=== PATIENT | female | born 1985 ===

== ENCOUNTER 2018-07-22 17:09 | Inpatient (IN) ==
[2018-07-22] MEDS: LACTATED RINGERS 1,000 ML IV SCH (17:53)
[2018-07-22] MEDS ORDERED: ONDANSETRON 4 MG/2 ML VIAL IV PRN (18:00)
[2018-07-22] MEDS ORDERED: OXYTOCIN/LR 20 UNIT/1,000 ML BAG IV ONE (18:06)
[2018-07-22] MEDS ORDERED: CITRIC ACID/SODIUM CITRATE 30 ML UDCUP PO ONE (18:14)
[2018-07-22] MEDS ORDERED: FAMOTIDINE 20 MG/2 ML VIAL IV ONE (18:14)
[2018-07-22] MEDS ORDERED: INFLUENZA VIRUS VACCINE 0.5 ML SYRINGE IM ONE (18:36)
[2018-07-22 18:54] LABS: Basophils % 0.2 % (0.0-0.8); Eosinophils # 0.1 10*3/uL (0.0-0.87); Eosinophils % 1.4 % (0.00-10.9); Hematocrit 29.5 VOL% (35.7-47.0); Hemoglobin 9.6 GM/DL (12.0-16.0); Immature Granulocytes % 0.8 %; Immature Granulocytes Absolute 0.05 #; Lymphocytes # 1.4 10*3/uL (1.4-4.0); Lymphocytes % 20.7 % (21.3-54.2); Mean Corpuscular HGB Conc 32.5 GM/DL (32-36); Mean Corpuscular Hemoglobin 30 PG (27-34); Mean Corpuscular Volume 93.1 FL (87-102); Mean Platelet Volume 10.9 FL (9.6-12.0); Monocytes # 0.5 10*3/uL (0.11-0.8); NRBC # 0.02 10*3/uL; Neutrophils # 4.6 10*3/uL (1.4-7.4); Neutrophils % 69.9 % (38.7-73.9); Platelet Count 159 T/CUMM (130-400); Red Blood Count 3.17 MC/CUMM (3.8-5.5); Red Cell Distribution Width 16.3 % (9.3-17.3); White Blood Count 6.6 T/CUMM (4-12)
[2018-07-22 19:10] LABS: Alanine Aminotransferase 26 U/L (13-56); Alkaline Phosphatase 180 U/L (45-117); Aspartate Amino Transferase 34 U/L (0-37); Bilirubin,Total < 0.39 MG/DL (0.2-1.0); Blood Urea Nitrogen 11 MG/DL (7-18); Calcium 7.4 MG/DL (8.5-10.1); Glucose 92 MG/DL (74-106); Osmolality,Calculated 284.8 MOS/KG (273-304); Potassium 3.7 MMOL/L (3.5-5.1); Sodium 144 MMOL/L (136-145); Total Protein 5.8 G/DL (6.4-8.3)
[2018-07-23] MEDS ORDERED: FAMOTIDINE 20 MG/2 ML VIAL IV ONE (08:00)
[2018-07-23] MEDS ORDERED: CITRIC ACID/SODIUM CITRATE 30 ML UDCUP PO ONE (08:00)
[2018-07-23] MEDS ORDERED: OXYTOCIN 10 UNIT/ML VIAL IM ONE (08:00)
[2018-07-23] MEDS ORDERED: ceFAZolin 2,000 MG in PREMIX 1 EACH IV ONE (08:00)
[2018-07-23] MEDS ORDERED: OXYTOCIN/LR 20 UNIT/1,000 ML BAG IV ONE ×2 (08:00→14:14)
[2018-07-23] MEDS ORDERED: OXYTOCIN/LR 30 UNIT/1,000 ML BAG IV ONE (08:27)
[2018-07-23] MEDS: LACTATED RINGERS 1,000 ML IV SCH (08:59)
[2018-07-23 09:34] LABS: Apearance,Urine CLEAR (Clear); Bacteria,Urine Occasional /HPF (Few); Bilirubin,Urine Negative (Negative); Blood, Urine Small mg/dL (Negative); Glucose,Urine (UA) Negative (Negative); Ketones,Urine Negative (Negative); Mucus,Urine Occasional /LPF (Occasional); Nitrite,Urine Negative (Negative); Protein,Urine Negative; RBC,Urine 2 /HPF (0-4); Squamous Epithelial Cell,Urine Occasional /HPF (0-10); Urine Color Yellow (Yellow); Urine Specific Gravity 1.014 (1.001-1.035); WBC,Urine 1 /HPF (0-6)
[2018-07-23] MEDS ORDERED: SODIUM CHLORIDE 0.9% 1,000 ML IV PRN (10:28)
[2018-07-23] MEDS ORDERED: miSOPROStol 200 MCG TABLET ONE (10:29)
[2018-07-23] MEDS ORDERED: METHYLERGONOVINE 0.2 MG/1 ML AMP ONE (10:29)
[2018-07-23] MEDS ORDERED: PHENYLEPHRINE 1 MG/10 ML SYRINGE IV ONE (11:03)
[2018-07-23] MEDS ORDERED: MORPHINE 10 MG/10 ML VIAL ONE (11:04)
[2018-07-23] MEDS ORDERED: ePHEDrine 50 MG/ML AMP ONE (11:04)
[2018-07-23] MEDS ORDERED: KETOROLAC 30 MG/1 ML VIAL ONE (11:04)
[2018-07-23] MEDS ORDERED: BUPIVACAINE SPINAL 0.75% 2 ML AMP SPINAL ONE (11:05)
[2018-07-23 11:12] LABS: Cord Venous Blood HCO3 22.5 MMOL/L; Cord Venous Blood PCO2 43.8 MMHG; Cord Venous Blood PO2 45.6
[2018-07-23] MEDS ORDERED: guaiFENesin/CODEINE 5 ML LIQUID PO PRN (13:27)
[2018-07-23] MEDS ORDERED: MAGNESIUM HYDROXIDE SUSP 30 ML UDCUP PO PRN (14:14)
[2018-07-23] MEDS ORDERED: RHO(D) IMMUNE GLOBULIN 300 MCG SYRINGE IM ONE (14:14)
[2018-07-23] MEDS ORDERED: ACETAMINOPHEN 325 MG TABLET PO PRN (14:14)
[2018-07-23] MEDS ORDERED: ONDANSETRON 4 MG/2 ML VIAL IV PRN (14:14)
[2018-07-23] MEDS ORDERED: SIMETHICONE CHEW 80 MG TABLET PO PRN (14:14)
[2018-07-23] MEDS ORDERED: ceFAZolin 1,000 MG in SYRINGE 1 EACH IV SCH ×2 (14:30→17:00)
[2018-07-23] MEDS ORDERED: methylPREDNISolone SOD SUC 40 MG/1 ML VIAL IV SCH (14:30)
[2018-07-23] MEDS ORDERED: LACTATED RINGERS 1,000 ML IV SCH (14:30)
[2018-07-23] MEDS: methylPREDNISolone SOD SUC 125 MG/2 ML VIAL IV SCH ×2 (14:45→22:18)
[2018-07-23] MEDS: ceFAZolin 1,000 MG in SYRINGE 1 EACH IV SCH (17:37)
[2018-07-23 18:52] LABS: Basophils % 0.2 % (0.0-0.8); Hemoglobin 10.8 GM/DL (12.0-16.0); Immature Granulocytes % 0.7 %; Immature Granulocytes Absolute 0.09 #; Lymphocytes # 0.7 10*3/uL (1.4-4.0); Lymphocytes % 5.4 % (21.3-54.2); Mean Corpuscular HGB Conc 31.8 GM/DL (32-36); Mean Corpuscular Hemoglobin 29 PG (27-34); Mean Corpuscular Volume 90.4 FL (87-102); Mean Platelet Volume 11.1 FL (9.6-12.0); Monocytes # 0.3 10*3/uL (0.11-0.8); Monocytes % 2.4 % (1.7-12.7); Neutrophils # 11.4 10*3/uL (1.4-7.4); Neutrophils % 91.3 % (38.7-73.9); Platelet Count 185 T/CUMM (130-400); Red Blood Count 3.76 MC/CUMM (3.8-5.5); Red Cell Distribution Width 15.6 % (9.3-17.3); White Blood Count 12.4 T/CUMM (4-12)
[2018-07-23 19:25] LABS: Band Neutrophils 3 % (0-10); Lymphocytes 2 % (20-55); Platelet Estimate Normal; Segmented Neutrophils 93 % (50-85); Total Cells Counted 100
[2018-07-23] MEDS: guaiFENesin/CODEINE 5 ML LIQUID PO PRN (22:24)
[2018-07-24] MEDS: ceFAZolin 1,000 MG in SYRINGE 1 EACH IV SCH (01:52)
[2018-07-24] MEDS: DOCUSATE SODIUM 100 MG CAPSULE PO SCH ×3 (02:49→22:08)
[2018-07-24] MEDS: IBUPROFEN 800 MG TABLET PO PRN ×2 (05:12→17:10)
[2018-07-24 06:20] LABS: Basophils % 0.1 % (0.0-0.8); Hematocrit 28.2 VOL% (35.7-47.0); Hemoglobin 8.8 GM/DL (12.0-16.0); Immature Granulocytes % 1.1 %; Immature Granulocytes Absolute 0.13 #; Mean Corpuscular HGB Conc 31.2 GM/DL (32-36); Mean Corpuscular Hemoglobin 29 PG (27-34); Mean Corpuscular Volume 91.9 FL (87-102); Mean Platelet Volume 11.2 FL (9.6-12.0); Monocytes # 0.4 10*3/uL (0.11-0.8); Monocytes % 3.6 % (1.7-12.7); NRBC # 0.02 10*3/uL; Neutrophils % 86.2 % (38.7-73.9); Platelet Count 176 T/CUMM (130-400); Red Blood Count 3.07 MC/CUMM (3.8-5.5); Red Cell Distribution Width 15.9 % (9.3-17.3); White Blood Count 11.5 T/CUMM (4-12)
[2018-07-24] MEDS ORDERED: METOCLOPRAMIDE 10 MG/2 ML VIAL IV SCH (08:00)
[2018-07-24] MEDS: MULTIVITAMIN (PRENATAL) TABLET PO SCH (08:57)
[2018-07-24] MEDS: METOCLOPRAMIDE 10 MG/2 ML VIAL IV SCH ×2 (14:44→22:55)
[2018-07-25] MEDS: METOCLOPRAMIDE 10 MG/2 ML VIAL IV SCH (02:09)
[2018-07-25] MEDS: IBUPROFEN 800 MG TABLET PO PRN (03:53)
[2018-07-25] MEDS: guaiFENesin/CODEINE 5 ML LIQUID PO PRN (06:10)
[2018-07-25 08:39] VITALS: BP 146/92
[2018-07-25] MEDS: MULTIVITAMIN (PRENATAL) TABLET PO SCH (09:35)
[2018-07-25] MEDS: DOCUSATE SODIUM 100 MG CAPSULE PO SCH (09:36)
== END 2018-07-25 13:20 | disposition home or self-care (01) | DRG 540 ==
LOC: N.LDOUT 17:09 → N.LD 17:11 → N.OB 07-23 13:37
PROVIDERS: ADMIT Obstetrics & Gynecology; ATTEND Obstetrics & Gynecology